=== PATIENT | male | born 1960 | race Caucasian/White ===

== ENCOUNTER 2017-10-09 09:27 | Emergency (ER) | payer MEDICAID ==
[~2017-10-09] VITALS: Ht 185.4 cm; Wt 83.9 kg
--- NOTE | 2017-10-09 09:38 | NUR ---
DR GILMORE AT THE BEDSIDE FOR EVAL AND EXAM.
[2017-10-09] MEDS ORDERED: TDAP DIPH,PERTUSS,TET VAC/PF 0.5 ML DISP.SYRIN IM ONE ×2 (09:41→10:00)
[2017-10-09] MEDS ORDERED: LIDOCAINE HCL 2% 20 ML VIAL TP ONE (10:00)
--- NOTE | 2017-10-09 10:00 | NUR ---
Patient discharged to home in stable conditon. Written and verbal after care instructions given. Patient verbalizes understanding of instructions.
[2017-10-09 10:01] VITALS: BP 149/98
== END 2017-10-09 10:01 | disposition home or self-care (01) ==
LOC: ER 09:30
DX: S61.211A Laceration without foreign body of left index finger without damage to nail, initial encounter (principal); Z59.0 Homelessness; X58.XXXA Exposure to other specified factors, initial encounter; Y93.89 Activity, other specified; Y92.89 Other specified places as the place of occurrence of the external cause; Y99.8 Other external cause status
CPT/HCPCS: 12001; 90471; 90715; 99283; A4663; J3490

== ENCOUNTER 2017-10-19 12:51 | Emergency (ER) | payer MEDICAID ==
[~2017-10-19] VITALS: Ht 180.3 cm; Wt 90.7 kg
--- NOTE | 2017-10-19 13:19 | NUR ---
Patient discharged to home in stable conditon. Written and verbal after care instructions given. Patient verbalizes understanding of instructions.
== END 2017-10-19 13:20 | disposition home or self-care (01) ==
LOC: ER 12:51
DX: S61.211D Laceration without foreign body of left index finger without damage to nail, subsequent encounter (principal); Z48.02 Encounter for removal of sutures; Z59.0 Homelessness; X58.XXXD Exposure to other specified factors, subsequent encounter
CPT/HCPCS: 99281; A4663